=== PATIENT | female | born 1960 | race Caucasian/White ===

== ENCOUNTER 2021-01-05 13:07 | Emergency (ER) | payer BC, OTHER ==
[~2021-01-05 13:07] MED LIST: ACTOS45 MG PO; BUSPAR 10MG10 MG PO; CATAPRES 0.1MG0.1 MG PO; CELEBREX 200MG200 MG PO; CRESTOR20 MG PO; DOXYCYCLINE HY100 MG PO; ECOTRIN81 MG PO; ELIQUIS 5 MG TAB5 MG PO; GLUCOPHAGE1000 MG PO; INDERAL LA120 MG PO; LEVOXYL175 MCG PO; LOPRESSOR 50 MG50 MG PO; MULTAQ400 MG PO; NEURONTIN 300300 MG PO; NORVASC10 MG PO; PLAVIX 75 MG TA75 MG PO; REMERON30 MG PO; ROCALTROL CA0.25 MCG PO; SEROQUEL50 MG PO; VALIUM 5 MG TAB5 MG PO; ZESTRIL40 MG PO
[2021-01-05 14:46] LABS: HEMOGLOBIN 13.8 gm/dl (12.3-15.3); RED BLOOD COUNT 4.78 M/UL (4.00-5.10); WHITE BLOOD COUNT 6.1 K/UL (4.5-11.0)
[2021-01-05] MEDS ORDERED: HYDROCODON-ACE1 EAC4 PO (16:06)
== END 2021-01-05 16:32 | disposition home or self-care (01) ==
LOC: ER1 13:07
PROVIDERS: Physician Assistant
DX: N13.2 Hydronephrosis with renal and ureteral calculous obstruction (principal); R31.9 Hematuria, unspecified; I48.91 Unspecified atrial fibrillation; E11.9 Type 2 diabetes mellitus without complications; E78.5 Hyperlipidemia, unspecified; I10 Essential (primary) hypertension; Z87.891 Personal history of nicotine dependence; Z88.1 Allergy status to other antibiotic agents
CPT/HCPCS: 80053; 81001; 85025; 99284

== ENCOUNTER → 2021-02-11 | Outpatient (CLI) | payer BC, OTHER ==
[~2021-02-11] MED LIST changes: +HYDROCODON-ACE1 EAC4 PO
== END ==
LOC: EXRD 15:39
DX: N20.1 Calculus of ureter (principal)
CPT/HCPCS: 74018

== ENCOUNTER → 2021-05-13 | Outpatient (CLI) | payer OTHER | LOC: HEART 5 09:50 | DX: R60.0 Localized edema (principal) | CPT/HCPCS: 93306 ==

== ENCOUNTER → 2021-05-17 | Outpatient (CLI) | payer OTHER | LOC: KOH-I 04-22 16:00 | DX: R34 Anuria and oliguria (principal); N20.1 Calculus of ureter | CPT/HCPCS: 74176 ==